=== PATIENT | female | born 1935 | race Two or more races ===

== ENCOUNTER 2023-09-09 10:37 | Inpatient (IN) | payer MEDICARE, MEDICAID ==
[~2023-09-09] VITALS: Ht 149.9 cm; Wt 44.5 kg
[2023-09-09 11:00] VITALS: PULSE 73; RESP 10; O2SAT 94
[2023-09-09 11:33] LABS: Basophils # (auto) 0 10 ^3/uL (0-0.2); Eosinophils # (auto) 0 10 ^3/uL (0-0.8); Eosinophils % (auto) 0.7 % (0.0-7.0); Hematocrit 42.2 % (36.0-46.0); Hemoglobin 14.4 g/dL (12.2-16.2); Lymphocytes # (auto) 1.5 10 ^3/uL (0.4-5.4); Lymphocytes % (auto) 33.7 % (10.0-50.0); Mean Corpuscular Hemoglobin 31.9 pg (28.0-32.0); Mean Corpuscular Hgb Conc. 34.1 g/dL (32.0-36.0); Mean Corpuscular Volume 93.4 fL (80.0-100.0); Monocytes # (auto) 0.4 10 ^3/uL (0-1.3); Monocytes % (auto) 7.9 % (0.0-12.0); Neutrophils # (auto) 2.6 10 ^3/uL (1.6-8.6); Neutrophils % (auto) 56.7 % (37.0-80.0); Nucleated Red Blood Cells % 0.1 %; Red Blood Cells 4.52 10^6/uL (4.0-5.20); Red Cell Distribution Width 14.8 % (11.8-14.3); White Blood Cell 4.5 10^3/uL (4.4-10.8)
[2023-09-09 11:47] LABS: Alanine Aminotransferase 18 U/L (7-40); Albumin 3.4 g/dL (3.2-4.8); Alkaline Phosphatase 87 U/L (46-116); Anion Gap 5 (5-15); Aspartate Aminotransferase 19 U/L (13-40); BUN/Creatinine Ratio 17.2 (10.0-20.0); Blood Urea Nitrogen 15 mg/dL (9-23); Calcium 9.3 mg/dL (8.7-10.4); Carbon Dioxide 26 mmol/L (20-30); Chloride 107 mmol/L (98-107); Glucose 165 mg/dL (74-106); Potassium 4.1 mmol/L (3.5-5.1); Sodium 138 mmol/L (136-145)
[2023-09-09 11:48] LABS: Bilirubin, Total 0.9 mg/dL (0.2-1.0); Total Protein 5.4 g/dL (5.7-8.2)
[2023-09-09 11:53] LABS: INR 3.16 (0.9-1.15); Prothrombin Time 30.8 sec (9.3-11.8)
[2023-09-09 13:34] LABS: Urine Blood 3+ /uL (Negative); Urine Clarity Ex.Turbid (Clear); Urine Color Red (Yellow); Urine Protein, UAD 2+ (Negative); Urine Urobilinogen Normal (Negative); Urine pH 6.5 (5.0-9.0)
[2023-09-09] MEDS: cefTRIAXone 1GM/50ML D5W 50 ML IV ONE (15:52)
[2023-09-09] MEDS ORDERED: MORPHINE SULFATE INJ 2 MG/ml SYRG IV PRN (16:30)
[2023-09-09] MEDS ORDERED: NITROGLYCERIN 0.4 MG SL TAB SL PRN (16:30)
[2023-09-09] MEDS: SODIUM CHLORIDE 0.9% 1,000 ML IV SCH (17:23)
[2023-09-09] MEDS: TAMSULOSIN HYDROCHLORIDE 0.4 MG CAP PO ONE (17:23)
[2023-09-09 18:41] LABS: Prothrombin Time 41.2 sec (9.3-11.8)
[2023-09-09 18:49] LABS: INR 4.33 (0.9-1.15)
[2023-09-09 19:30] VITALS: PULSE 69; RESP 14; O2SAT 95
[2023-09-09] MEDS: SODIUM CHLORIDE 0.9% 1,000 ML IV ONE (19:30)
[2023-09-09] MEDS: ONDANSETRON HCL 4 MG/2 ML VIAL IV PRN (23:07)
[2023-09-09] MEDS: MORPHINE SULFATE INJ 2 MG/ml SYRG IV PRN (23:08)
[2023-09-10] VITALS (10 sets, daily range): BP systolic 92–148; BP diastolic 44–62; PULSE 69–78; RESP 17–22; TEMP 97.3–98.4; O2SAT 92–96
[2023-09-10] MEDS ORDERED: LORA-1121 PO (01:56)
[2023-09-10] MEDS ORDERED: POM (01:56)
[2023-09-10 07:43] LABS: Alanine Aminotransferase 13 U/L (7-40); Albumin 3.2 g/dL (3.2-4.8); Alkaline Phosphatase 82 U/L (46-116); Anion Gap 13 (5-15); Aspartate Aminotransferase 25 U/L (13-40); BUN/Creatinine Ratio 16.2 (10.0-20.0); Bilirubin, Total 0.9 mg/dL (0.2-1.0); Blood Urea Nitrogen 11 mg/dL (9-23); Calcium 8.9 mg/dL (8.7-10.4); Carbon Dioxide 15 mmol/L (20-30); Chloride 110 mmol/L (98-107); Glucose 107 mg/dL (74-106); Potassium 4.1 mmol/L (3.5-5.1); Sodium 138 mmol/L (136-145); Total Protein 5.1 g/dL (5.7-8.2)
[2023-09-10 08:09] LABS: Basophils # (auto) 0 10 ^3/uL (0-0.2); Basophils % (auto) 0.2 % (0.0-2.0); Eosinophils # (auto) 0 10 ^3/uL (0-0.8); Eosinophils % (auto) 0.6 % (0.0-7.0); Hematocrit 40.3 % (36.0-46.0); Hemoglobin 13.6 g/dL (12.2-16.2); Lymphocytes # (auto) 2.3 10 ^3/uL (0.4-5.4); Lymphocytes % (auto) 38.7 % (10.0-50.0); Mean Corpuscular Hemoglobin 31.6 pg (28.0-32.0); Mean Corpuscular Hgb Conc. 33.8 g/dL (32.0-36.0); Mean Corpuscular Volume 93.5 fL (80.0-100.0); Monocytes # (auto) 0.4 10 ^3/uL (0-1.3); Monocytes % (auto) 6.6 % (0.0-12.0); Neutrophils # (auto) 3.2 10 ^3/uL (1.6-8.6); Neutrophils % (auto) 53.9 % (37.0-80.0); Nucleated Red Blood Cells % 0.3 %; Red Blood Cells 4.31 10^6/uL (4.0-5.20); Red Cell Distribution Width 14.5 % (11.8-14.3); White Blood Cell 5.9 10^3/uL (4.4-10.8)
[2023-09-10] MEDS: cefTRIAXone 1GM/50ML D5W 50 ML IV SCH (09:53)
[2023-09-10] MEDS: DOCUSATE SOD 100 MG CAP PO PRN (09:53)
[2023-09-10] MEDS ORDERED: LORA-655 SL (12:08)
[2023-09-10] MEDS ORDERED: DABI150C5 PO (12:08)
[2023-09-10] MEDS: TAMSULOSIN HYDROCHLORIDE 0.4 MG CAP PO SCH (19:41)
[2023-09-11] VITALS (8 sets, daily range): BP systolic 96–172; BP diastolic 47–101; PULSE 58–78; RESP 16–18; TEMP 97.9–98.7; O2SAT 93–97
[2023-09-11 05:52] LABS: Basophils # (auto) 0 10 ^3/uL (0-0.2); Basophils % (auto) 0.1 % (0.0-2.0); Eosinophils # (auto) 0 10 ^3/uL (0-0.8); Eosinophils % (auto) 0.2 % (0.0-7.0); Hemoglobin 13.9 g/dL (12.2-16.2); Lymphocytes # (auto) 1.3 10 ^3/uL (0.4-5.4); Lymphocytes % (auto) 19.6 % (10.0-50.0); Mean Corpuscular Hemoglobin 31.9 pg (28.0-32.0); Mean Corpuscular Hgb Conc. 34.1 g/dL (32.0-36.0); Mean Corpuscular Volume 93.7 fL (80.0-100.0); Monocytes # (auto) 0.4 10 ^3/uL (0-1.3); Monocytes % (auto) 6.4 % (0.0-12.0); Neutrophils # (auto) 4.9 10 ^3/uL (1.6-8.6); Neutrophils % (auto) 73.7 % (37.0-80.0); Nucleated Red Blood Cells % 0.1 %; Red Blood Cells 4.37 10^6/uL (4.0-5.20); Red Cell Distribution Width 14.7 % (11.8-14.3); White Blood Cell 6.7 10^3/uL (4.4-10.8)
[2023-09-11 06:01] LABS: Chloride 108 mmol/L (98-107); Potassium 3.4 mmol/L (3.5-5.1); Sodium 139 mmol/L (136-145)
[2023-09-11 06:02] LABS: Anion Gap 11 (5-15); Calcium 8.9 mg/dL (8.7-10.4); Carbon Dioxide 20 mmol/L (20-30)
[2023-09-11 06:07] LABS: BUN/Creatinine Ratio 11.1 (10.0-20.0); Blood Urea Nitrogen 8 mg/dL (9-23); Glucose 119 mg/dL (74-106)
[2023-09-11] MEDS: POTASSIUM CHL 20MEQ/100ML 100 ML IV ONE (10:01)
[2023-09-11 12:45] LABS: INR 1.28 (0.9-1.15); Partial Thromboplastin Time 33.3 SEC (24.5-34.5); Prothrombin Time 13.3 sec (9.3-11.8)
[2023-09-11] MEDS: ERGOCALCIFEROL 50,000 UNIT(1.25MG) CAP PO SCH (17:31)
[2023-09-11] MEDS: ASPirin 81 mg TAB PO ONE (17:32)
[2023-09-11] MEDS: CYANOCOBALAMIN (B-12) 1000 MCG/1 ML VIAL IM ONE (17:36)
[2023-09-12 05:00] VITALS: BP 140/56; PULSE 72; RESP 17; TEMP 98.2; O2SAT 92
[2023-09-12 07:01] LABS: Calcium 9.2 mg/dL (8.7-10.4); Chloride 108 mmol/L (98-107); Potassium 3.4 mmol/L (3.5-5.1); Sodium 139 mmol/L (136-145)
[2023-09-12 07:02] LABS: Anion Gap 10 (5-15); Carbon Dioxide 21 mmol/L (20-30)
[2023-09-12 07:07] LABS: BUN/Creatinine Ratio 11.3 (10.0-20.0); Blood Urea Nitrogen 7 mg/dL (9-23); Glucose 85 mg/dL (74-106)
[2023-09-12 08:00] VITALS: PULSE 77; RESP 18; O2SAT 94
[2023-09-12 08:30] VITALS: BP 126/55; PULSE 77; RESP 18; TEMP 98.3; O2SAT 94
[2023-09-12] MEDS: POTASSIUM EFFERVESENT TAB 25 MEQ GT ONE (10:56)
[2023-09-12] MEDS: ASPirin 81 mg TAB PO SCH (10:56)
[2023-09-12 13:30] VITALS: BP 130/63; PULSE 71; RESP 18; TEMP 98.1; O2SAT 96
[2023-09-12 15:13] VITALS: BP 130/63; PULSE 71; RESP 18; TEMP 98.1; O2SAT 98
[2023-09-12] MEDS ORDERED: ASPI-325 PO (16:23)
[2023-09-12] MEDS ORDERED: CEPH250C PO (16:23)
[2023-09-12] MEDS ORDERED: ATOR20TA50 PO (16:23)
[2023-09-12] MEDS ORDERED: TAMS0.4C36 PO (16:25)
[2023-09-12] MEDS ORDERED: CYAN100060 PO (16:25)
[2023-09-12] MEDS ORDERED: ERGO1CAP23 PO (16:25)
== END 2023-09-12 15:56 | disposition home or self-care (01) | DRG 690 ==
LOC: EDBD 10:37 → ER 10:37 → WEST WING 16:45 → OVERFLOW 16:45 → WEST WING 09-10 01:30
PROVIDERS: ADMIT Internal Medicine; ATTEND Surgery
DX: N30.01 Acute cystitis with hematuria (principal); E44.1 Mild protein-calorie malnutrition; Z68.1 Body mass index [BMI] 19.9 or less, adult; N20.0 Calculus of kidney; N21.0 Calculus in bladder; I25.10 Atherosclerotic heart disease of native coronary artery without angina pectoris; F03.90 Unspecified dementia, unspecified severity, without behavioral disturbance, psychotic disturbance, mood disturbance, and anxiety; N26.1 Atrophy of kidney (terminal); E55.9 Vitamin D deficiency, unspecified; E87.6 Hypokalemia; Z66 Do not resuscitate; F41.9 Anxiety disorder, unspecified; Z87.442 Personal history of urinary calculi; Z79.01 Long term (current) use of anticoagulants; Z95.5 Presence of coronary angioplasty implant and graft
CPT/HCPCS: 36415; 74176; 80048; 80053; 81003; 82306; 82607; 83036; 83605; 83735; 84443; 85025; 85610; 85730; 87086; 96365; G0378; J2405; J3480